=== PATIENT | male | born 1985 | race Caucasian/White ===

== ENCOUNTER 2019-02-13 20:48 | Emergency (ER) | payer MEDICAID ==
[~2019-02-13] VITALS: Ht 170.2 cm; Wt 83.5 kg
[2019-02-13 20:52] VITALS: BP 124/69
--- NOTE | 2019-02-13 21:00 | NUR ---
PT TAKEN TO BED 2
--- NOTE | 2019-02-13 21:07 | NUR ---
33 Y/O MALE WITH C/O CHEST PAIN X3 HRS. PT STATES 8/10 PRESSURE PROVOKED BY INSPIRATION. PT STATES HE FEELS LIKE HE IS GOING TO PASS OUT AND WHEN HE STANDS UP HE GETS LIGHTHEADED. DENIES BLURRED VISION. DENIES N/V/D. NON COMPLIANT TO CHOLESTEROL AND DM MEDICATIONS PER PT DUE TO SIDE EFFECTS. RR EVEN AND UNLABORED. PT PLACED ON MONITOR. VSS. FAMILY MEMBER AT BEDSIDE. MEDHX: HYPERLIPIDEMA, DM TYPE 2 ALLERGIES: NKA
--- NOTE | 2019-02-13 21:35 | NUR ---
Dr. Lemus examining patient.
[2019-02-13] MEDS ORDERED: ASPIRIN 81 MG TAB.CHEW PO ONE (21:45)
--- NOTE | 2019-02-13 21:52 | NUR ---
LAB AT BEDSIDE
[2019-02-13 22:05] LABS: BASOPHILS % (AUTO) 0.5 % (0.0-2.0); EOSINOPHILS # (AUTO) 0.1 K/uL (0-0.4); EOSINOPHILS % (AUTO) 1.9 % (0.0-4.0); HEMATOCRIT 41.3 % (36-52); HEMOGLOBIN 14.1 g/dL (12.0-18.0); LYMPHOCYTES # (AUTO) 2.1 K/uL (2.0-11.5); LYMPHOCYTES % (AUTO) 47.8 % (20.5-51.1); MEAN CORPUSCULAR HEMOGLOBIN 32 pg (27-31); MEAN CORPUSCULAR HGB CONC 34 g/dL (33-37); MEAN CORPUSCULAR VOLUME 93.8 fL (80-94); MONOCYTES # (AUTO) 0.2 K/uL (0.8-1.0); MONOCYTES % (AUTO) 5.4 % (1.7-9.3); NEUTROPHILS % (AUTO) 44.4 % (42.2-75.2); PLATELET COUNT (AUTO) 155 K/uL (140-450); RED BLOOD CELL COUNT(AUTO) 4.41 MIL/uL (4.20-6.10); RED CELL DISTRIBUTION WIDTH 13.1 % (11.6-13.7); WHITE BLOOD COUNT (AUTO) 4.5 K/uL (4.8-10.8)
--- NOTE | 2019-02-13 22:19 | NUR ---
PT STATES RELIEF OF CHEST PAIN AT THIS TIME. PT IN BED POSITIONED FOR COMFORT. VSS. WILL CONTINUE TO MONITOR.
[2019-02-13 22:27] LABS: ANION GAP 13.6 (8-16); CARBON DIOXIDE 26.3 mmol/L (21-32); CREATININE 0.8 mg/dL (0.7-1.3); POTASSIUM 3.9 mmol/L (3.5-5.1)
--- NOTE | 2019-02-13 22:28 | NUR ---
PT AMBULATED TO RESTROOM WITH STEADY GAIT.
--- NOTE | 2019-02-14 00:30 | NUR ---
PT SITTING UPRIGHT IN BED, POSITIONED FOR COMFORT. PT REMAINS ON MONITOR AT THIS TIME. VISIBLE RISE AND FALL OF THE CHEST. AT BEDSIDE. VSS. WILL CONTINUE TO MONITOR.
[2019-02-14 01:38] VITALS: BP 104/60
--- NOTE | 2019-02-14 01:38 | NUR ---
Patient discharged with v/s stable. Written and verbal after care instructions given and explained. Patient verbalized understanding. Ambulatory with steady gait. All questions addressed prior to discharge. Advised to follow up with PMD. PT ACCOMPANIED BY .
== END 2019-02-14 01:38 | disposition home or self-care (01) ==
LOC: MED 20:48
DX: R07.89 Other chest pain (principal); E78.5 Hyperlipidemia, unspecified; E11.9 Type 2 diabetes mellitus without complications
CPT/HCPCS: 36415; 71045; 80048; 84484; 85025; 93005; 99284; Q0092